=== PATIENT | female | born 1995 | race Caucasian/White ===

== ENCOUNTER 2024-04-23 13:15 | Emergency (ER) | payer SELFPAY ==
[2024-04-23 13:23] VITALS: BP 126/76; PULSE 80; TEMP 36.9; O2SAT 99; BMI 31.2
--- NOTE | 2024-04-23 13:36 | CT_ITS ---
[address] [address] Patient Name: JAEK JONES MRN: [id number] date: 1995 Sex: F Assigned Patient Location: ER Current Patient Location: ER Accession/Order Number: [id number] Exam Date: 04/23/2024 14:29 Report Date: 04/23/2024 14:57 At the request of: SADAF HAUSER Procedure: CT head/brain wo con EXAM: CT head/brain wo con CLINICAL INDICATION: Headache COMPARISON: None TECHNIQUE: Axial CT images of the brain were obtained without contrast. Coronal and sagittal reformats were obtained. Dose reduction techniques were achieved by using automated exposure control and/or adjustment of mA and/or kV according to patient size and/or use of iterative reconstruction technique. FINDINGS: No intracranial hemorrhage, extra-axial fluid collection, hydrocephalus, midline shift, or acute infarction. No other mass effect. Patent basal cisterns. No calvarial fracture. Normal soft tissues. Paranasal sinuses and mastoid air cells are well-aerated. CT/CT head/brain wo con IMPRESSION: No acute intracranial process. Electronically authenticated by: IVANA SAN Date: 04/23/2024 14:57
--- NOTE | 2024-04-23 13:37 | ED.GENADUL1 ---
HPI HPI - General Adult General Chief complaint: Headache Stated complaint: HEADACHE Time Seen by Provider: 04/23/24 13:32 Source: patient Mode of arrival: walk-in Limitations: no limitations History of Present Illness HPI narrative: Patient is a 28-year-old female who presents to the emergency department at 7 weeks for persistent headache over the last 5 days. She denies visual changes, fevers. She has had nausea and vomiting associated with her . She has no other upper respiratory symptoms. She does not have a history of frequent headaches or migraines. No peripheral paresthesias or neck pain. She is awake and alert at initial interview in no distress. She has been using caffeine and Tylenol without improvement. No concerns at this time. Related Data Previous Rx's ?Medication ?Instructions ?Recorded diphenhydramine HCl 25 mg capsule 25 mg PO Q6H PRN headache #20 caps 04/23/24 (Benadryl) metoclopramide HCl 10 mg tablet 10 mg PO Q6H PRN nausea and 04/23/24 (Reglan) vomiting #12 tabs Allergies Allergy/AdvReac Type Severity Reaction Status Date / Time acetaminophen [From [place]] Allergy Severe Verified 04/23/24 13:23 hydrocodone [From [place]] Allergy Severe Verified 04/23/24 13:23 Opioid HPI Opioid Management Most Recent Opioid Data: No Data to Display Review of Systems ROS Constitutional Denies: fever or chills Ears, nose, mouth, and throat Denies: throat pain or nasal congestion Cardiovascular Denies: chest pain Respiratory Denies: shortness of breath or cough Gastrointestinal Reports: nausea and vomiting Musculoskeletal Denies: back pain or neck pain Neurological Reports: headache; Denies: numbness in extremities or weakness in extremities Hematologic/Lymphatic Denies: easy bruising or easy bleeding Exam Narrative Exam Narrative: Gen.: Awake, alert, in no distress Head: Normocephalic, atraumatic ENT: Moist mucous membranes, No nuchal rigidity or meningismus. Bilateral TMs clear Respiratory: No respiratory distress, lungs clear bilaterally Cardio: Regular rate and rhythm Extremities: Moves extremities equally, no injuries noted Psych: Normal mood and affect Neuro: No focal neuro deficit Skin: Warm, dry, intact Constitutional Vital Signs, click to edit/add: Last Vital Signs Temp 98.4 F 04/23/24 13:23 Pulse 100 H 04/23/24 15:12 Resp 20 04/23/24 15:12 BP 114/75 04/23/24 15:12 Pulse Ox 100 04/23/24 15:12 O2 Del Method Room Air 04/23/24 15:12 Course Vital Signs Vital signs: Vital Signs Temperature 98.4 F 04/23/24 13:23 Pulse Rate 80 04/23/24 13:23 Respiratory Rate 18 04/23/24 13:23 Blood Pressure 126/76 04/23/24 13:23 Pulse Oximetry 99 04/23/24 13:23 Temperature 98.4 F 04/23/24 13:23 Pulse Rate 100 H 04/23/24 15:12 Respiratory Rate 20 04/23/24 15:12 Blood Pressure 114/75 04/23/24 15:12 Pulse Oximetry 100 04/23/24 15:12 Oxygen Delivery Method Room Air 04/23/24 15:12 Medical Decision Making MDM Narrative Medical decision making narrative: Patient was treated with IV fluids, Reglan and Benadryl. She did feel anxious and restless after the Reglan was given, she was given 0.25 mg IV Ativan with improvement and rested comfortably. Her CT of the brain, lab studies are unremarkable and she is discharged home with Reglan to be taken orally with Benadryl for home for the headache. Follow-up with PCP and return to the ER if symptoms change or worsen Medical Records Medical records reviewed: Yes I reviewed the patient's medical records Lab Data Lab results reviewed: Yes I reviewed the patient's lab results Labs: Lab Results 04/23/24 Range/Units 14:05 WBC 10.7 (4.0-11.0) 10^3/uL RBC 4.61 (4.20-5.40) 10^6/uL Hgb 13.7 (12.0-16.0) g/dL Hct 41.6 (36.0-48.0) % MCV 90.2 (81.0-99.0) fL MCH 29.7 (26.7-34.0) pg MCHC 32.9 (29.9-35.2) g/dL RDW 11.8 (11.0-15.0) % Plt Count 332 (150-450) 10^3/uL MPV 10.0 (9.5-13.5) fL Neut % (Auto) 78.6 H (43.0-75.0) % Lymph % (Auto) 15.9 L (20.5-60.0) % [place] % (Auto) 4.5 (1.7-12.0) % Eos % (Auto) 0.4 L (0.9-7.0) % Baso % (Auto) 0.4 (0.2-2.0) % Neut # (Auto) 8.4 H (1.4-6.5) 10^3/uL Lymph # (Auto) 1.7 (1.2-3.8) 10^3/uL [place] # (Auto) 0.5 (0.3-0.8) 10^3/uL Eos # (Auto) 0.0 (0.0-0.7) 10^3/uL Baso # (Auto) 0.0 (0.0-0.1) 10^3/uL Abs Immat Gran (auto) 0.02 (0.00-0.03) 10^3/uL Imm/Tot Granulo (auto) 0.2 (0.0-0.5) % ESR 30 H (<=20) mm/hr Sodium 135 L (136-145) mmol/L Potassium 4.1 (3.5-5.1) mmol/L Chloride 99 (98-107) mmol/L Carbon Dioxide 28.9 (21.0-32.0) mmol/L Anion Gap 11.2 BUN 5.0 L (7.0-18.0) mg/dL Creatinine 0.53 L (0.55-1.02) mg/dL Est GFR ( Amer) >60 (>=60) Est GFR (Non-Af Amer) >60 (>=60) BUN/Creatinine Ratio 9.4 Glucose 90 (74-106) mg/dL Calcium 9.2 (8.5-10.1) mg/dL C-Reactive Protein 0.87 H (<=0.50) mg/dL Imaging Data CT scan - head: Attestation: I have reviewed the pertinent imaging results. Radiologist's impression: ITS Impressions Head CT 04/23/24 13:36 IMPRESSION: No acute intracranial process. Electronically authenticated by: IVANA SAN Date: 04/23/2024 14:57 Discharge Plan Discharge Stand Alone Forms: Portal Instructions Chief Complaint: Headache Clinical Impression: Headache Patient Disposition: Home, Self-Care Time of Disposition Decision: 15:29 Condition: Good Prescriptions / Home Meds: New metoclopramide HCl [Reglan] 10 mg tablet 10 mg PO Q6H PRN (Reason: nausea and vomiting) Qty: 12 0RF Rx Instructions: Can be taken with benadryl for headache diphenhydramine HCl [Benadryl] 25 mg capsule 25 mg PO Q6H PRN (Reason: headache) Qty: 20 0RF Rx Instructions: To be taken with metoclopramide for headache Print Language: [place] Instructions: Acute Headache (ED) Referrals: Physician,Non-Staff, MD [Primary Care Provider] - 1 week
[2024-04-23] MEDS: 0.9 % SODIUM CHLORIDE 1,000 ML 999 ML IV (14:15)
[2024-04-23] MEDS: METOCLOPRAMIDE HCL 10 MG/2 ML VIAL IVP (14:15)
[2024-04-23] MEDS: DIPHENHYDRAMINE HCL 50 MG/ML VIAL 25 MG IV (14:15)
[2024-04-23 14:23] LABS: Basophils Percent Auto 0.4 % (0.2-2.0); Eosinophils Percent Auto 0.4 % (0.9-7.0); Hematocrit 41.6 % (36.0-48.0); Hemoglobin 13.7 g/dL (12.0-16.0); Immature Granulocytes Abs Auto 0.02 10^3/uL (0.00-0.03); Immature Granulocytes Pct Auto 0.2 % (0.0-0.5); Lymphocytes Absolute Auto 1.7 10^3/uL (1.2-3.8); Lymphocytes Percent Auto 15.9 % (20.5-60.0); Mean Corpuscular HGB Conc 32.9 g/dL (29.9-35.2); Mean Corpuscular Hemoglobin 29.7 pg (26.7-34.0); Mean Corpuscular Volume 90.2 fL (81.0-99.0); Monocytes Absolute Auto 0.5 10^3/uL (0.3-0.8); Monocytes Percent Auto 4.5 % (1.7-12.0); Neutrophils Absolute Auto 8.4 10^3/uL (1.4-6.5); Neutrophils Percent Auto 78.6 % (43.0-75.0); Platelet Count 332 10^3/uL (150-450); Red Blood Count 4.61 10^6/uL (4.20-5.40); Red Cell Distribution Width 11.8 % (11.0-15.0); White Blood Count 10.7 10^3/uL (4.0-11.0)
[2024-04-23 14:40] LABS: Anion Gap 11.2; BUN Creatinine Ratio 9.4; C Reactive Protein 0.87 mg/dL (<=0.50); Calcium 9.2 mg/dL (8.5-10.1); Carbon Dioxide 28.9 mmol/L (21.0-32.0); Chloride 99 mmol/L (98-107); Estimated GFR (African America >60 (>=60); Estimated GFR (Non-African Ame >60 (>=60); Glucose 90 mg/dL (74-106); Potassium 4.1 mmol/L (3.5-5.1); Sodium 135 mmol/L (136-145)
[2024-04-23 14:57] LABS: Erythrocyte Sedimentation Rate 30 mm/hr (<=20)
[2024-04-23] MEDS: LORAZEPAM 2 MG/ML VIAL 0.5 MG IV (15:09)
[2024-04-23 15:12] VITALS: BP 114/75; PULSE 100; O2SAT 100
== END 2024-04-23 15:41 | disposition home or self-care (01) ==
PROVIDERS: Physician Assistant; Emergency Provider Emergency Medicine Emergency Medical Services
DX: O26.891 Other specified pregnancy related conditions, first trimester (principal); R51.9 Headache, unspecified; Z3A.01 Less than 8 weeks gestation of pregnancy
CPT/HCPCS: 36415; 70450; 80048; 85025; 85652; 86140; 96374; 96375; 99285